=== PATIENT | female | born 1995 | race Caucasian/White ===

== ENCOUNTER 2017-12-17 17:23 | Emergency (ER) | payer MEDICAID ==
[~2017-12-17] VITALS: Ht 157.5 cm; Wt 100.0 kg
[2017-12-17 19:30] LABS: CLARITY URINE CLOUDY (CLEAR); COLOR URINE YELLOW (YELLOW); KETONES URINE TRACE (NEGATIVE); LEUKOCYTE ESTERASE URINE 2+ (NEGATIVE); NITRITE URINE NEGATIVE (NEGATIVE); OCCULT BLOOD URINE NEGATIVE (NEGATIVE); PH URINE 6.5 (4.5-8.0); PROTEIN URINE NEGATIVE (NEGATIVE); SPECIFIC GRAVITY URINE 1.028 (1.005-1.030)
[2017-12-17 19:39] LABS: BASOPHILS % 0.7 % (0.0-2.0); EOSINOPHILS % 1.4 % (0.0-5.0); HEMATOCRIT. 39.9 % (36.0-48.0); HEMOGLOBIN. 13.4 g/dL (12.0-16.0); LYMPHOCYTES % 17.1 % (20.0-50.0); MEAN CORPUSCULAR HEMOGLOBIN 30.2 pg (28.0-32.0); MEAN CORPUSCULAR VOLUME 89.9 fL (81.0-99.0); MEAN PLATELET VOLUME 9.1 fl (7.4-10.4); MONOCYTES % 7.7 % (2.0-8.0); NEUTROPHILS % 73.1 % (40.0-76.0); PLATELET 255 x1000/uL (130-400); RED BLOOD CELL COUNT 4.44 mill/uL (4.2-5.4); RED CELL DISTRIBUTION WIDTH 12.9 % (11.6-14.6)
[2017-12-17 19:43] LABS: CHLORIDE 108 mEq/L (98-107)
[2017-12-17 20:08] LABS: B-HCG QUANTITATIVE 72902 mIU/mL (<3)
[2017-12-17] MEDS ORDERED: ACETAMINOPHEN 325MG TABLET PO ONE (20:45)
[2017-12-17] MEDS ORDERED: CEFTRIAXONE SODIUM 1 G/VIAL IM ONE (22:00)
[2017-12-17 22:10] VITALS: BP 117/63
[2017-12-17] MEDS ORDERED: LIDOCAINE HCL/PF 1% 10 MG/ML 5ML VIAL ONE (22:11)
== END 2017-12-17 22:25 | disposition home or self-care (01) ==
LOC: ER 17:23
DX: O23.42 Unspecified infection of urinary tract in pregnancy, second trimester (principal); O20.9 Hemorrhage in early pregnancy, unspecified; Z3A.20 20 weeks gestation of pregnancy
CPT/HCPCS: 36415; 76705; 76801; 80053; 81003; 84702; 85025; 87086; 96372; 99285; J0696; J3490; Z7610

== ENCOUNTER 2017-12-18 06:53 | Emergency (ER) | payer MEDICAID ==
[~2017-12-18] VITALS: Ht 157.5 cm; Wt 100.0 kg
[2017-12-18 09:31] LABS: BASOPHILS % 0.6 % (0.0-2.0); EOSINOPHILS % 1.4 % (0.0-5.0); HEMATOCRIT. 37.7 % (36.0-48.0); HEMOGLOBIN. 12.9 g/dL (12.0-16.0); MEAN CORPUSCULAR HEMOGLOBIN 30.5 pg (28.0-32.0); MEAN CORPUSCULAR VOLUME 88.9 fL (81.0-99.0); MEAN PLATELET VOLUME 9.2 fl (7.4-10.4); MONOCYTES % 7.8 % (2.0-8.0); NEUTROPHILS % 74.2 % (40.0-76.0); PLATELET 235 x1000/uL (130-400); RED BLOOD CELL COUNT 4.24 mill/uL (4.2-5.4); RED CELL DISTRIBUTION WIDTH 12.7 % (11.6-14.6)
[2017-12-18 09:34] LABS: CHLORIDE 109 mEq/L (98-107)
[2017-12-18 09:59] LABS: B-HCG QUANTITATIVE 67017 mIU/mL (<3)
[2017-12-18 11:03] VITALS: BP 102/55
== END 2017-12-18 11:09 | disposition home or self-care (01) ==
LOC: ER 07:34
DX: R10.2 Pelvic and perineal pain (principal); M79.609 Pain in unspecified limb
CPT/HCPCS: 36415; 80053; 83690; 84702; 85025; 99284